=== PATIENT | female | born 1935 | race Caucasian/White ===

== ENCOUNTER 2023-07-27 12:49 | Emergency (ER) | payer MEDICARE, BC ==
[~2023-07-27] VITALS: Ht 170.2 cm; Wt 77.3 kg
[~2023-07-27 12:49] MED LIST: ALLO100T PO; ALPR0.5T9 PO; ASPI-611 PO; DEXL60CA3 PO; LEVO88TA2 PO; METF-1203 PO; MULT-620 PO; NEBI5TAB10 PO; VALS320T17 PO
[2023-07-27 13:15] VITALS: TEMP 97.5
[2023-07-27 13:47] LABS: BASOPHILS # (AUTO) 0.1 X10'3 (0-0.2); BASOPHILS % (AUTO) 0.7 % (0-1); EOSINOPHILS # (AUTO) 0.2 X10'3 (0-0.9); EOSINOPHILS % (AUTO) 2.5 % (0-6); HEMATOCRIT 37.4 % (35.0-45.0); HEMOGLOBIN 12.7 g/dl (12.0-16.0); LYMPHOCYTES # (AUTO) 1.2 X10'3 (1.1-4.8); LYMPHOCYTES % (AUTO) 13.5 % (21-51); MEAN CORPUSCULAR HEMOGLOBIN 28.8 PG (27.0-31.0); MEAN CORPUSCULAR HGB CONC 33.9 g/dL (33.0-36.5); MEAN CORPUSCULAR VOLUME 85.1 FL (78-98); MONOCYTES # (AUTO) 0.9 X10'3 (0-0.9); NEUTROPHILS # (AUTO) 6.4 X10'3 (1.8-7.7); NEUTROPHILS % (AUTO) 73.3 % (42-75); PLATELET COUNT 190 X10'3 (140-440); RED CELL DISTRIBUTION WIDTH 13.7 % (11.5-14.5); WHITE BLOOD COUNT 8.8 X10'3 (4.5-11.0)
[2023-07-27 14:06] LABS: BILIRUBIN,URINE NEGATIVE (Neg); CLARITY,URINE SLIGHTLY CLOUDY (Clear); COLOR,URINE YELLOW (Yellow); GLUCOSE, URINE NEGATIVE (Neg); KETONES,URINE NEGATIVE (Neg); LEUKOCYTE ESTERASE ,URINE SMALL (Neg); NITRITES, URINE NEGATIVE (Neg); OCCULT BLOOD,URINE NEGATIVE (Neg); PH,URINE 5.5 (4.8-8.0); PROTEIN,URINE 100 mg/dl (Neg); UROBILINOGEN,URINE 0.2 E.U/dL (0.2-1.0)
[2023-07-27 14:07] LABS: ALANINE AMINOTRANSFERASE 23 U/L (12-78); ALBUMIN 2.8 G/DL (3.4-5.0); ALBUMIN/GLOBULIN RATIO 0.7 (1.1-1.5); ALKALINE PHOSPHATASE 71 IU/L (46-116); ANION GAP 14 (8-16); ASPARTATE AMINO TRANSFERASE 23 U/L (10-37); BILIRUBIN,TOTAL 0.4 MG/DL (0.1-1.0); BLOOD UREA NITROGEN 26 MG/DL (7-18); BUN/CREATININE RATIO 20.3 (10.0-20.0); CALCIUM 9.2 MG/DL (8.5-10.1); CHLORIDE 106 MMOL/L (99-107); CREATININE 1.28 MG/DL (0.40-0.90); GLUCOSE 122 MG/DL (70-104); POTASSIUM 3.2 MMOL/L (3.5-5.1); SODIUM 141 MMOL/L (135-145); TOTAL CARBON DIOXIDE 20.8 MMOL/L (24-32); TOTAL PROTEIN 7.1 G/DL (6.4-8.2); eCRCL 30 ML/MIN; eGFR 39 ML/MIN
[2023-07-27 14:25] LABS: LIPASE 131 U/L (16-77)
[2023-07-27 14:28] LABS: UA COLLECTION TYPE VOIDED
[2023-07-27 14:33] LABS: WBC CLUMPS,URINE MANY /HPF (NEGATIVE); WBC,URINE 50-100 /HPF (0-4)
[2023-07-27 14:34] LABS: BACTERIA,URINE NONE SEEN /HPF (Neg); RBC,URINE 0-2 /HPF (0-2); SQUAMOUS EPITHELIAL CELL,UR MODERATE /LPF (FEW); TRANSITIONAL EPI CELLS,URINE MODERATE /HPF; YEAST FEW /HPF (NEGATIVE)
[2023-07-27] MEDS ORDERED: CefTRIAXone/D5W-Rocephin 1gm 50 ML IV STA (14:41)
[2023-07-27] MEDS ORDERED: potassium Cl 20 mEq SR tablet PO STA (14:41)
[2023-07-27] MEDS ORDERED: magnesium 2GM in 50ml NS 50 ML IV STA (14:41)
[2023-07-27] MEDS ORDERED: DOXY-356 PO (16:06)
[2023-07-27] MEDS ORDERED: dexamethasone sod phosphate 10mg/ml inj PO STA (16:11)
[2023-07-27] MEDS ORDERED: CefTRIAXone 1000mg IM Kit (w/lidocaine diluent) IM ONE (16:15)
[2023-07-27 16:48] VITALS: BP 191/91; PULSE 63; RESP 18; O2SAT 95
== END 2023-07-27 16:50 | disposition home or self-care (01) ==
LOC: ER 12:51
DX: J06.9 Acute upper respiratory infection, unspecified (principal); Z20.822 Contact with and (suspected) exposure to COVID-19; N39.0 Urinary tract infection, site not specified; I10 Essential (primary) hypertension; Z79.899 Other long term (current) drug therapy
CPT/HCPCS: 36415; 80053; 81001; 83605; 83690; 84145; 85025; 87040; 87088; 87811; 96372; 99283; J0696; J1100; 99284

== ENCOUNTER 2025-01-06 08:26 | Day surgery (SDC) | payer MEDICARE, BC ==
[~2025-01-06] VITALS: Ht 167.6 cm; Wt 75.3 kg
[2025-01-06] VITALS (10 sets, daily range): BP systolic 152–195; BP diastolic 71–92; PULSE 53–61; RESP 14–20; TEMP 97.5; O2SAT 92–97
[~2025-01-06 08:26] MED LIST changes: -NEBI5TAB10 PO; +NEBI5TAB9 PO
[2025-01-06] MEDS ORDERED: ESOM40CA66 PO (09:54)
[2025-01-06] MEDS ORDERED: NEBI10TA13 PO (09:54)
[2025-01-06] MEDS ORDERED: ASPI-10 PO (09:54)
[2025-01-06] MEDS ORDERED: CLON0.1T2 PO (09:54)
[2025-01-06] MEDS ORDERED: METF-1203 PO (09:54)
[2025-01-06] MEDS ORDERED: AMLO-256 PO (09:54)
[2025-01-06] MEDS ORDERED: ASCO500T19 PO (09:54)
[2025-01-06] MEDS ORDERED: DULO30CA52 PO (09:54)
[2025-01-06] MEDS ORDERED: HYDR50TA46 PO (09:54)
[2025-01-06] MEDS ORDERED: MULT-1133 PO (09:54)
[2025-01-06 10:13] LABS: ANION GAP 11 (8-16); BLOOD UREA NITROGEN 33 MG/DL (7-18); BUN/CREATININE RATIO 19.8 (10.0-20.0); CALCIUM 8.4 MG/DL (8.5-10.1); CHLORIDE 106 MMOL/L (99-107); CREATININE 1.67 MG/DL (0.40-0.90); GLUCOSE 125 MG/DL (70-104); MAGNESIUM 1.2 MG/DL (1.5-2.4); POTASSIUM 3.3 MMOL/L (3.5-5.1); SODIUM 139 MMOL/L (135-145); TOTAL CARBON DIOXIDE 22.1 MMOL/L (24-32); eCRCL 21 ML/MIN; eGFR 29 ML/MIN
[2025-01-06 10:26] LABS: INR 1.1 INR; PROTHROMBIN TIME 11.4 SECONDS (9.0-12.0)
[2025-01-06] MEDS: diphenhydrAMINE 25mg capsule PO PRN (10:31)
[2025-01-06] MEDS: normal saline 1,000 ML IV SCH (10:35)
[2025-01-06] MEDS: sodium bicarbonate 1meq/ml syr 150 ML in dextrose 5%-water 1,000 ML IV ONE (10:36)
[2025-01-06] MEDS ORDERED: heparin 1,000unit/ml 10ml vial 10 ML ONE (11:23)
[2025-01-06] MEDS ORDERED: LIDOcaine 1% 30ml preserv. free vial ONE (11:23)
[2025-01-06] MEDS ORDERED: midazolam 1 mg/ML 2ml injection ONE (11:23)
[2025-01-06] MEDS ORDERED: iohexol 350MG/ML 100ml bottle IV ONE (11:23)
[2025-01-06] MEDS ORDERED: fentaNYL/PF 50MCG/1 ML 2ML syringe ONE (11:24)
[2025-01-06 11:29] LABS: BASOPHILS % (AUTO) 0.7 % (0-1); EOSINOPHILS # (AUTO) 0.4 X10'3 (0-0.9); EOSINOPHILS % (AUTO) 5.5 % (0-6); HEMATOCRIT 32.4 % (35.0-45.0); LYMPHOCYTES % (AUTO) 14.4 % (21-51); MEAN CORPUSCULAR HEMOGLOBIN 28.8 PG (27.0-31.0); MEAN CORPUSCULAR HGB CONC 33.9 g/dL (33.0-36.5); MEAN CORPUSCULAR VOLUME 85.1 FL (78-98); MEAN PLATELET VOLUME 8.6 FL (7.4-10.4); MONOCYTES # (AUTO) 0.7 X10'3 (0-0.9); MONOCYTES % (AUTO) 9.7 % (2-12); NEUTROPHILS # (AUTO) 4.7 X10'3 (1.8-7.7); NEUTROPHILS % (AUTO) 69.7 % (42-75); PLATELET COUNT 171 X10'3 (140-440); RED CELL DISTRIBUTION WIDTH 14.4 % (11.5-14.5)
[2025-01-06 11:31] LABS: WHITE BLOOD COUNT 5.7 X10'3 (4.5-11.0)
[2025-01-06] MEDS ORDERED: iohexol 350 MG/ML 50ML vial IV ONE (12:13)
[2025-01-06] MEDS ORDERED: HYDROcodone/acetaminophen 10/325mg tab PO PRN (13:15)
[2025-01-06] MEDS ORDERED: HYDROcodone/acetaminophen 5mg/325mg tablet PO PRN (13:15)
[2025-01-06] MEDS ORDERED: OXAZEpam 15mg capsule PO PRN (13:15)
== END 2025-01-06 16:07 | disposition home or self-care (01) ==
LOC: SSTAY O 08:26
PROVIDERS: ATTEND Internal Medicine Cardiovascular Disease
DX: I70.1 Atherosclerosis of renal artery (principal); E11.22 Type 2 diabetes mellitus with diabetic chronic kidney disease; I12.9 Hypertensive chronic kidney disease with stage 1 through stage 4 chronic kidney disease, or unspecified chronic kidney disease; N18.30 Chronic kidney disease, stage 3 unspecified; E03.9 Hypothyroidism, unspecified; Z86.73 Personal history of transient ischemic attack (TIA), and cerebral infarction without residual deficits
CPT/HCPCS: 36252; 36415; 80048; 83735; 85025; 85610; 93005; 99152; 99153; A6258; C1760; C1769; C1887; C1894; J1644; J2003; J2250; J3010; J3490; J7030; J7070; Q0163; Q9967; Z7610